=== PATIENT | female | born 1990 | race Two or more races ===

== ENCOUNTER 2022-10-01 21:31 | Emergency (ER) | payer BC ==
[~2022-10-01] VITALS: Ht 167.6 cm; Wt 90.2 kg
[2022-10-01 23:34] VITALS: BP 128/66
[2022-10-02] MEDS ORDERED: TETANUS-DIPTH-ACEL PERTUSSIS 0.5ML SYR Tdap IM ONE
[2022-10-02] MEDS ORDERED: KETOROLAC TROMETH 60MG/2ML VIAL IM ONE
== END 2022-10-02 01:19 | disposition home or self-care (01) ==
LOC: ER 21:31
DX: S91.311A Laceration without foreign body, right foot, initial encounter (principal); M79.605 Pain in left leg; W10.9XXA Fall (on) (from) unspecified stairs and steps, initial encounter; Y93.89 Activity, other specified; Y92.89 Other specified places as the place of occurrence of the external cause; Y99.8 Other external cause status
CPT/HCPCS: 12001; 73590; 73630; 90471; 90715; 96372; 99284; J1885

== ENCOUNTER 2023-05-22 15:01 | Emergency (ER) | payer MEDICAID, OTHER ==
[~2023-05-22] VITALS: Ht 170.2 cm; Wt 108.2 kg
[2023-05-22 15:06] VITALS: BP 117/67; PULSE 60; RESP 16; O2SAT 99
== END 2023-05-22 16:00 | disposition left against medical advice (07) ==
LOC: ER 15:01
DX: G43.909 Migraine, unspecified, not intractable, without status migrainosus (principal); Z53.21 Procedure and treatment not carried out due to patient leaving prior to being seen by health care provider